=== PATIENT | female | born 1955 | race Caucasian/White ===

== ENCOUNTER 2016-05-31 15:17 | Emergency (ER) | payer OTHER ==
[2016-05-31 15:27] VITALS: BP 134/68
--- NOTE | 2016-05-31 17:31 | PROVIDER DOCUMENTATION ---
HPI-Musculoskeletal Pain/Inj - GENERAL Chief Complaint: Fall Stated Complaint: FALL Time Seen by Provider: 05/31/16 16:58 Source: patient - HX OF PRESENT ILLNESS-MUSKULOSKELTAL Nature of Presenting Problem: 61 yo F presents to ED with cc of L side rib pain and L hand and wrist pain following a fall yesterday. Pt reports pain on deep inspiration. Pt denies loss of ROM for L arm but states that she has difficulty moving wrist and hand. Pt has hx of chronic back pain. Upon arrival to ED, pt is in no apparent distress. Quality of Pain: reports: aching Severity in ED: moderate Onset/Duration: abrupt, 24 hours ago Timing: still present Modifying Factors: improves with: immobilization Any recent injury?: Yes (fall ) - FALL INJURY Location of Pain/Injury: reports: hand(s) (L hand & wrist), upper body (L side of ribs) Pain Radiation: reports: no radiation Reason for Fall: reports: lost balance Symptoms prior to fall:: reports: none Loss of Consciousness: no loss of consciousness Injury Associated Symptoms: reports: denies symptoms - TRUNK INJURY Location of Injury(s)/Pain: reports: ribs Context / Method of Injury: reports: fall Associated Symptoms: reports: pain with breathing - UPPER EXTREMITY PAIN/INJURY Extremities Pain Location: wrist: left, hand: left Context / Method of Injury: reports: fell Associated Symptoms: reports: denies symptoms Review of Systems - Adult - REVIEW OF SYSTEMS - ADULT Constitutional: reports: no symptoms reported. denies: chills, fever Eyes: reports: no symptoms reported. denies: discharge, blurred vision Ears, Nose, Mouth & Throat: reports: no symptoms reported. denies: ear discharge, ear pain Cardiovascular: reports: no symptoms reported. denies: chest pain, edema Respiratory: reports: no symptoms reported. denies: cough, dyspnea on exertion Gastrointestinal: reports: no symptoms reported. denies: abdominal pain, difficulty swallowing Genitourinary: reports: no symptoms reported. denies: dysuria, flank pain Musculoskeletal: reports: bone pain (L ribcage, L hand, L wrist) Integumentary: reports: no symptoms reported. denies: hives, itching Neurological: reports: no symptoms reported. denies: ataxia, dizziness/vertigo , loss of balance, syncope Psychiatric: reports: no symptoms reported. denies: anxiety, depression Endocrine: reports: no symptoms reported. denies: cold intolerance, heat intolerance Hematologic/Lymphatic: reports: no symptoms reported. denies: blood clots, easy bruising Allergic/Immunologic: reports: no symptoms reported. denies: allergic reactions , eczema All Other Systems: Reviewed and Negative Past History - Adult - PAST MEDICAL HISTORY-ADULT Review of Records: reports: Old Records Reviewed, Nursing Assessment Review, Medications Reviewed, Social history reviewed & non-contributory. Musculoskeletal: reports: chronic pain - IMMUNIZATION STATUS Childhood Immunizations: See Nurse Assessment Flu Vaccine: See Nurse Assessment - FAMILY HISTORY Family History: reviewed, not pertinent Physical Exam-Injury Related - Physical Exam-Injury Related Initial Vital Signs Reviewed: Yes General Appearance: appears well, alert, no apparent distress Eyes: PERRL/EOMI, pink conjunctivae Head, Ears, Nose, Mouth & Throat: normocephalic/atraumatic, moist mucous membranes Neck: non-tender, full range of motion, supple Respiratory: chest non-tender, lungs clear, normal breath sounds, no accessory muscle use, respiratory distress, rib tenderness (L side, from fall) Cardiovascular: normal peripheral pulses, regular rate, rhythm Abdominal Exam: non tender, soft Lymphatic: no adenopathy Back Exam: normal inspection, no vertebral tenderness Extremity: erythema (L hand, near thumb), swelling (L hand, L wrist), tenderness (L hand, L wrist) Integumentary: contusion(s) (L hand near thumb) Neurologic: grossly normal, no motor/sensory deficits Psych/Mental Status: normal mood/affect, normal thought content, normal thought process, oriented x 3 - Glascow Coma Score Best Eye Response ([place]): (4) open spontaneously Best Verbal Response (Celia): (5) oriented Best Motor Response ([place]): (6) obeys commands Celia Total: 15 Progress - PLAN OF CARE/RESULTS Progress/Plan/Lab Results: Vital Signs - 24 hr 05/31/16 15:24 Temperature 97.8 F Pulse Rate 98 H Respiratory 18 Rate Blood Pressure 134/68 O2 Sat by Pulse 98 Oximetry Orders Category Date Time Status Wrist Splint DIRECTED Care 05/31/16 17:30 Active RIBS UNILAT W/PA CHEST LEFT [RAD] Stat Exams 05/31/16 15:27 Taken WRIST COMPLETE LEFT [RAD] Stat Exams 05/31/16 15:28 Taken - XRAY 1 XRAY: Left XRAY Study: Ribs Impression: Normal XRAY Interpretation: NAD per radiology 2 XRAY: Left XRAY Study: Wrist, Hand Impression: Normal XRAY Interpretation: NAD Procedures - SPLINTING Left Upper Extremity Pre-Fabricated Splint: Wrist Applied By: ED Nurse Departure - Departure Time of Disposition Order: 17:53 DIAGNOSIS: Rib contusion Qualifiers: Encounter type: initial encounter Laterality: left Qualified Code(s): S20.212A - Contusion of left front wall of thorax, initial encounter Left wrist sprain Qualifiers: Encounter type: initial encounter Qualified Code(s): S63.502A - Unspecified sprain of left wrist, initial encounter Disposition: HOME 01 Certified Medical Emergency: Emergent Condition: Good Prescriptions: Hydrocodone/APAP 5 mg/325 mg [[place]-5] 1 - 2 tab PO Q6H PRN PRN #18 tablet PRN Reason: Pain Referrals: None,PCP [Primary Care Provider] - Champ Woody MD [STAFF PHYSICIAN] - Forms: Return to School/Parent Work Instructions: Acetaminophen; Hydrocodone tablets or capsules, Contusion, Easy- to-Read Attestation - Scribe Verification/Attestation Scribe:: Bria Beavers Acting as Scribe for:: Laquita Queen Scribe documention review:: This chart was documented by a scribe and accurately reflects the service the provider performed and the decisions made by the provider. - Physician/ Mid-level Attestation Patient care was provided by Mid-level provider ([employer]/PA):: Yes Mid-level provider:: Laquita Queen Mid-level documentation review:: The Mid-level provider documentation, treatment plan and medical decision making was reviewed by the physician who agrees with all treatment and medical decision making by the [facility]. The physician spent face to face time with patient:: Yes
--- NOTE | 2016-05-31 22:31 | Diag Imaging Result Document ---
PROCEDURE NAME: RIBS UNILAT W/PA CHEST LEFT - 05/31/2016 PLAIN RADIOGRAPH OF THE CHEST AND LEFT RIBS 4 VIEWS: COMPARISON: None available. FINDINGS: There is no discrete rib fracture or intrinsic osseous lesion identified. The lungs are grossly clear. There is perhaps minimal atelectasis at the left lung base. There is no pleural fluid collection or pneumothorax identified. Cardiac silhouette and central vasculature are grossly unremarkable. IMPRESSION: No discrete rib fracture identified.
--- NOTE | 2016-05-31 22:33 | Diag Imaging Result Document ---
PROCEDURE NAME: WRIST COMPLETE LEFT - 05/31/2016 PLAIN RADIOGRAPH OF THE LEFT WRIST 3 VIEWS: COMPARISON: None available. FINDINGS: There is a vague calcific or osseous fragment at the ulnocarpal joint. This may represent an avulsed ulnar styloid. However, it could be chronic. Please correlate clinically for specific pain in this region. There is scaphotrapezial degenerative change. No other discrete fracture, dislocation, or intrinsic osseous lesion is appreciated. IMPRESSION: Vague osseous fragment distal to the ulna. Please see above discussion.
== END 2016-05-31 17:58 | disposition home or self-care (01) ==
LOC: P.ED 15:17
DX: S20.212A Contusion of left front wall of thorax, initial encounter (principal); S63.502A Unspecified sprain of left wrist, initial encounter; R07.81 Pleurodynia; M79.642 Pain in left hand; M25.532 Pain in left wrist; G89.29 Other chronic pain; Z79.899 Other long term (current) drug therapy; W19.XXXA Unspecified fall, initial encounter
CPT/HCPCS: 71101; 99283